=== PATIENT | male | born 1970 | race Caucasian/White ===

== ENCOUNTER 2020-10-04 10:23 | Emergency (ER) | payer OTHER ==
[~2020-10-04] VITALS: Ht 180.3 cm; Wt 72.6 kg
[2020-10-04] MEDS ORDERED: AMOXICILLIN 50500 MG PO (10:45)
[2020-10-04 11:13] VITALS: BP 124/74
== END 2020-10-04 11:14 | disposition home or self-care (01) ==
LOC: M.ERS 10:23
DX: K04.7 Periapical abscess without sinus (principal)